=== PATIENT | female | born 1985 | race Two or more races ===

== ENCOUNTER 2023-09-08 16:53 | Inpatient (IN) | payer MEDICAID, OTHER ==
[~2023-09-08] VITALS: Ht 162.6 cm; Wt 107.0 kg
[2023-09-08] MEDS: ceFAZolin 2 GM/D5W50ml 50 ML IV ONE (01:25)
[2023-09-08 20:01] LABS: Basophils # (auto) 0.1 10 ^3/uL (0-0.2); Eosinophils # (auto) 0.1 10 ^3/uL (0-0.8); Eosinophils % (auto) 1.1 % (0.0-7.0); Hematocrit 41.9 % (36.0-46.0); Hemoglobin 13.8 g/dL (12.2-16.2); Lymphocytes # (auto) 3.3 10 ^3/uL (0.4-5.4); Lymphocytes % (auto) 28.8 % (10.0-50.0); Mean Corpuscular Hemoglobin 28.4 pg (28.0-32.0); Mean Corpuscular Hgb Conc. 32.9 g/dL (32.0-36.0); Mean Corpuscular Volume 86.2 fL (80.0-100.0); Monocytes # (auto) 0.7 10 ^3/uL (0-1.3); Monocytes % (auto) 6.5 % (0.0-12.0); Neutrophils # (auto) 7.1 10 ^3/uL (1.6-8.6); Neutrophils % (auto) 62.6 % (37.0-80.0); Red Blood Cells 4.86 10^6/uL (4.0-5.20); Red Cell Distribution Width 15.4 % (11.8-14.3); White Blood Cell 11.4 10^3/uL (4.4-10.8)
[2023-09-08 20:10] LABS: Chloride 106 mmol/L (98-107); Potassium 3.7 mmol/L (3.5-5.1); Sodium 138 mmol/L (136-145)
[2023-09-08 20:11] LABS: Anion Gap 5 (5-15); Carbon Dioxide 27 mmol/L (20-30)
[2023-09-08 20:12] LABS: Calcium 9.7 mg/dL (8.5-10.1)
[2023-09-08 20:16] LABS: BUN/Creatinine Ratio 9.2 (10.0-20.0); Blood Urea Nitrogen 9 mg/dL (9-23); Glucose 81 mg/dL (74-106)
[2023-09-08] MEDS ORDERED: ONDANSETRON HCL 4 MG/2 ML VIAL IV PRN (22:15)
[2023-09-08] MEDS ORDERED: DOCUSATE SOD 100 MG CAP PO PRN (22:15)
[2023-09-08] MEDS ORDERED: VANCOMYCIN PER PHARMACY 0 MG IV SCH (23:30)
[2023-09-08] MEDS ORDERED: MORPHINE SULFATE INJ 2 MG/ml SYRG IV PRN (23:45)
[2023-09-08] MEDS ORDERED: NITROGLYCERIN 0.4 MG SL TAB SL PRN (23:45)
[2023-09-08] MEDS: HYDROcodone-ACET 5/325MG TAB PO ONE (23:56)
[2023-09-09] VITALS (8 sets, daily range): BP systolic 106–135; BP diastolic 63–87; PULSE 65–101; RESP 17–20; TEMP 97.5–99.8; O2SAT 97–100
[2023-09-09] MEDS: VANCOMYCIN 1GM/200ML 200 ML IV ONE (01:24)
[2023-09-09] MEDS: SODIUM CHLORIDE 0.9% 1,000 ML IV SCH (01:24)
[2023-09-09] MEDS: HYDROcodone-ACET 5/325MG TAB PO PRN (04:04)
[2023-09-09] MEDS ORDERED: ceFAZolin 1GM/50ML 50 ML IV SCH (06:00)
[2023-09-09 06:31] LABS: Basophils # (auto) 0 10 ^3/uL (0-0.2); Basophils % (auto) 0.5 % (0.0-2.0); Eosinophils # (auto) 0.1 10 ^3/uL (0-0.8); Eosinophils % (auto) 1.3 % (0.0-7.0); Hematocrit 40.9 % (36.0-46.0); Hemoglobin 13.8 g/dL (12.2-16.2); Lymphocytes % (auto) 29.8 % (10.0-50.0); Mean Corpuscular Hemoglobin 29.1 pg (28.0-32.0); Mean Corpuscular Hgb Conc. 33.6 g/dL (32.0-36.0); Mean Corpuscular Volume 86.5 fL (80.0-100.0); Monocytes # (auto) 0.5 10 ^3/uL (0-1.3); Monocytes % (auto) 4.7 % (0.0-12.0); Neutrophils # (auto) 6.4 10 ^3/uL (1.6-8.6); Neutrophils % (auto) 63.7 % (37.0-80.0); Nucleated Red Blood Cells % 0.1 %; Red Blood Cells 4.73 10^6/uL (4.0-5.20); Red Cell Distribution Width 15.4 % (11.8-14.3); White Blood Cell 10.1 10^3/uL (4.4-10.8)
[2023-09-09 06:53] LABS: Alanine Aminotransferase 13 U/L (7-40); Albumin 4.5 g/dL (3.2-4.8); Alkaline Phosphatase 83 U/L (46-116); Anion Gap 11 (5-15); Aspartate Aminotransferase 12 U/L (13-40); BUN/Creatinine Ratio 9.4 (10.0-20.0); Bilirubin, Total 0.4 mg/dL (0.2-1.0); Blood Urea Nitrogen 8 mg/dL (9-23); Calcium 9.7 mg/dL (8.7-10.4); Carbon Dioxide 24 mmol/L (20-30); Chloride 102 mmol/L (98-107); Glucose 116 mg/dL (74-106); Potassium 3.7 mmol/L (3.5-5.1); Sodium 137 mmol/L (136-145)
[2023-09-09] MEDS ORDERED: BUSP10TA31 PO (07:55)
[2023-09-09] MEDS ORDERED: BUPR150T8 PO (07:55)
[2023-09-09] MEDS ORDERED: TRAZ-181 PO (07:55)
[2023-09-09] MEDS ORDERED: BUPR200T2 PO (08:00)
[2023-09-09] MEDS: VANCOMYCIN 1GM/200ML 200 ML IV SCH (10:06)
[2023-09-09] MEDS: MORPHINE SULFATE INJ 2 MG/ml SYRG IV PRN (10:22)
[2023-09-09 19:37] LABS: Basophils # (auto) 0.1 10 ^3/uL (0-0.2); Basophils % (auto) 0.5 % (0.0-2.0); Eosinophils # (auto) 0.2 10 ^3/uL (0-0.8); Eosinophils % (auto) 1.9 % (0.0-7.0); Hematocrit 41.5 % (36.0-46.0); Lymphocytes % (auto) 29.8 % (10.0-50.0); Mean Corpuscular Hemoglobin 29.2 pg (28.0-32.0); Mean Corpuscular Hgb Conc. 33.7 g/dL (32.0-36.0); Mean Corpuscular Volume 86.9 fL (80.0-100.0); Monocytes # (auto) 0.7 10 ^3/uL (0-1.3); Monocytes % (auto) 6.6 % (0.0-12.0); Neutrophils # (auto) 6.1 10 ^3/uL (1.6-8.6); Neutrophils % (auto) 61.2 % (37.0-80.0); Red Blood Cells 4.78 10^6/uL (4.0-5.20); Red Cell Distribution Width 15.2 % (11.8-14.3); White Blood Cell 9.9 10^3/uL (4.4-10.8)
[2023-09-09 19:56] LABS: Alanine Aminotransferase 15 U/L (7-40); Albumin 4.4 g/dL (3.2-4.8); Alkaline Phosphatase 77 U/L (46-116); Anion Gap 4 (5-15); Aspartate Aminotransferase 12 U/L (13-40); BUN/Creatinine Ratio 9.2 (10.0-20.0); Bilirubin, Total 0.5 mg/dL (0.2-1.0); Blood Urea Nitrogen 7 mg/dL (9-23); Calcium 9.4 mg/dL (8.5-10.1); Carbon Dioxide 26 mmol/L (20-30); Chloride 105 mmol/L (98-107); Glucose 88 mg/dL (74-106); Potassium 3.8 mmol/L (3.5-5.1); Sodium 135 mmol/L (136-145); Total Protein 7.6 g/dL (5.7-8.2)
[2023-09-09] MEDS: ceFAZolin 1GM/50ML 50 ML IV SCH (21:11)
[2023-09-10] VITALS (8 sets, daily range): BP systolic 112–134; BP diastolic 53–85; PULSE 64–78; RESP 16–20; TEMP 97.8–98.5; O2SAT 93–100
[2023-09-10 06:10] LABS: Basophils # (auto) 0 10 ^3/uL (0-0.2); Basophils % (auto) 0.3 % (0.0-2.0); Eosinophils # (auto) 0.2 10 ^3/uL (0-0.8); Eosinophils % (auto) 1.7 % (0.0-7.0); Hematocrit 41.6 % (36.0-46.0); Hemoglobin 13.6 g/dL (12.2-16.2); Lymphocytes % (auto) 28.1 % (10.0-50.0); Mean Corpuscular Hemoglobin 28.6 pg (28.0-32.0); Mean Corpuscular Hgb Conc. 32.6 g/dL (32.0-36.0); Mean Corpuscular Volume 87.8 fL (80.0-100.0); Monocytes # (auto) 0.7 10 ^3/uL (0-1.3); Monocytes % (auto) 6.7 % (0.0-12.0); Neutrophils # (auto) 6.8 10 ^3/uL (1.6-8.6); Neutrophils % (auto) 63.2 % (37.0-80.0); Nucleated Red Blood Cells % 0.1 %; Red Blood Cells 4.73 10^6/uL (4.0-5.20); Red Cell Distribution Width 15.2 % (11.8-14.3); White Blood Cell 10.7 10^3/uL (4.4-10.8)
[2023-09-10 06:18] LABS: INR 1.05 (0.9-1.15); Partial Thromboplastin Time 27.1 SEC (24.5-34.5); Prothrombin Time 11.1 sec (9.3-11.8)
[2023-09-10 06:22] LABS: Alanine Aminotransferase 11 U/L (7-40); Albumin 4.2 g/dL (3.2-4.8); Alkaline Phosphatase 76 U/L (46-116); Anion Gap 5 (5-15); Aspartate Aminotransferase 11 U/L (13-40); BUN/Creatinine Ratio 7.5 (10.0-20.0); Bilirubin, Total 0.6 mg/dL (0.2-1.0); Blood Urea Nitrogen 6 mg/dL (9-23); Calcium 9.4 mg/dL (8.5-10.1); Carbon Dioxide 26 mmol/L (20-30); Chloride 106 mmol/L (98-107); Glucose 82 mg/dL (74-106); Potassium 3.8 mmol/L (3.5-5.1); Sodium 137 mmol/L (136-145)
[2023-09-10 06:23] LABS: Total Protein 7.4 g/dL (5.7-8.2)
[2023-09-10] MEDS: ACETAMINOPHEN 325 MG TAB PO PRN (13:02)
[2023-09-11 01:00] VITALS: BP 105/70; PULSE 72; RESP 18; TEMP 98.1; O2SAT 95
[2023-09-11] MEDS: VANCOMYCIN 1GM/200ML 200 ML IV SCH (04:10)
[2023-09-11 05:00] VITALS: BP 119/75; PULSE 83; RESP 20; TEMP 98.1; O2SAT 100
[2023-09-11 08:49] VITALS: BP 124/68; PULSE 72; RESP 18; TEMP 98.9; O2SAT 99
[2023-09-11] MEDS ORDERED: BUPR75TA96 PO (12:01)
[2023-09-11 12:34] VITALS: BP 117/70; PULSE 74; RESP 18; TEMP 98.1; O2SAT 100
[2023-09-11] MEDS: buPROPion HCL 75 MG TAB PO ONE (13:00)
[2023-09-11] MEDS: busPIRone HCL 10 MG TAB PO PRN (13:12)
[2023-09-11 17:00] VITALS: BP 130/81; PULSE 62; RESP 16; TEMP 98.1; O2SAT 99
[2023-09-11 21:00] VITALS: BP 140/91; PULSE 84; RESP 18; TEMP 97.7; O2SAT 99
[2023-09-11] MEDS: traZODone HCL 50 MG TAB PO SCH (21:33)
[2023-09-12] VITALS (7 sets, daily range): BP systolic 96–138; BP diastolic 57–85; PULSE 66–88; RESP 16–21; TEMP 97.6–99; O2SAT 96–99
[2023-09-12] MEDS: buPROPion HCL 75 MG TAB PO SCH (10:39)
[2023-09-13 01:00] VITALS: BP 102/54; PULSE 74; RESP 16; TEMP 98.2; O2SAT 98
[2023-09-13 05:00] VITALS: BP 111/66; PULSE 66; RESP 16; TEMP 98.2; O2SAT 98
[2023-09-13 07:30] VITALS: PULSE 66; O2SAT 98
[2023-09-13 07:44] LABS: Basophils # (auto) 0 10 ^3/uL (0-0.2); Basophils % (auto) 0.6 % (0.0-2.0); Eosinophils # (auto) 0.1 10 ^3/uL (0-0.8); Eosinophils % (auto) 1.6 % (0.0-7.0); Hematocrit 34.8 % (36.0-46.0); Hemoglobin 11.3 g/dL (12.2-16.2); Lymphocytes # (auto) 2.2 10 ^3/uL (0.4-5.4); Lymphocytes % (auto) 31.5 % (10.0-50.0); Mean Corpuscular Hemoglobin 28.6 pg (28.0-32.0); Mean Corpuscular Hgb Conc. 32.6 g/dL (32.0-36.0); Monocytes # (auto) 0.5 10 ^3/uL (0-1.3); Monocytes % (auto) 6.8 % (0.0-12.0); Neutrophils # (auto) 4.2 10 ^3/uL (1.6-8.6); Neutrophils % (auto) 59.5 % (37.0-80.0); Red Blood Cells 3.96 10^6/uL (4.0-5.20); Red Cell Distribution Width 14.9 % (11.8-14.3); White Blood Cell 7.1 10^3/uL (4.4-10.8)
[2023-09-13 08:46] VITALS: BP 124/73; PULSE 91; RESP 17; TEMP 98.7; O2SAT 98
[2023-09-13] MEDS ORDERED: CEPH500C PO (11:45)
[2023-09-13] MEDS ORDERED: ACET300T51 PO (11:45)
[2023-09-13 13:10] VITALS: BP 116/71; PULSE 60; RESP 17; TEMP 98.2; O2SAT 99
[2023-09-13 13:55] VITALS: BP 111/66; PULSE 66; RESP 16; TEMP 36.8; O2SAT 98
== END 2023-09-13 14:45 | disposition home or self-care (01) | DRG 385 ==
LOC: ER 16:53 → WEST WING 23:22 → OVERFLOW 23:32 → WEST WING 09-09 03:58
PROVIDERS: ADMIT Internal Medicine; ATTEND Nurse Practitioner Acute Care
PROC: 0H9T0ZZ Drainage of Right Breast, Open Approach (ICD-10-PCS; principal; 2023-09-12)
DX: N61.1 Abscess of the breast and nipple (principal); D72.829 Elevated white blood cell count, unspecified; E66.9 Obesity, unspecified; F41.9 Anxiety disorder, unspecified; F32.A Depression, unspecified; Z68.39 Body mass index [BMI] 39.0-39.9, adult; Z82.49 Family history of ischemic heart disease and other diseases of the circulatory system; Z83.3 Family history of diabetes mellitus
CPT/HCPCS: 36415; 75989; 76642; 80048; 80053; 80202; 82565; 85025; 85610; 85730; 87081; 87205; 96365; C1729; G0378